=== PATIENT | male | born 1990 | race Caucasian/White ===

== ENCOUNTER 2019-09-08 08:24 | Emergency (ER) | payer BC ==
[~2019-09-08] VITALS: Ht 170.2 cm; Wt 79.8 kg
[2019-09-08] MEDS ORDERED: AMOX-CLAV 875-1 EACH PO (08:54)
[2019-09-08] MEDS ORDERED: TUSNEL LIQUID178 ML PO (08:54)
== END 2019-09-08 09:19 | disposition home or self-care (01) ==
LOC: ER 08:24
DX: J03.80 Acute tonsillitis due to other specified organisms (principal)